=== PATIENT | female | born 1950 | race Caucasian/White ===

== ENCOUNTER 2016-06-14 21:00 | Inpatient (IN) | payer MEDICARE, OTHER ==
[2016-06-14 21:24] LABS: BASOPHIL 0.4 % (0-2); EOSINOPHIL 2.6 % (0-7); HCT 44.1 % (37.0-47.0); HGB 15.6 g/dl (12.5-16.0); LYMPHOCYTE 34.8 % (15-48); MCH 31.5 pg (25.0-31.0); MCHC 35.4 g/dL (32.0-36.0); MCV 89.1 fL (78.0-100.0); MONOCYTE 6.4 % (0-12); MPV 10.1 fL (6.0-9.5); NEUTROPHIL 55.8 % (41-80); PLT 349 K/uL (150-400); RBC 4.95 M/uL (4.20-5.40); RDW 12.7 % (11.5-14.0); WBC 8.9 K/uL (4.0-10.5)
[2016-06-14 21:31] LABS: INR 1.03 (0.9-1.2); PROTHROMBIN TIME 13.1 SECONDS (11.7-14.0); PTT 32.3 SECONDS (23.2-31.4)
[2016-06-14 21:32] LABS: D-DIMER < 0.27 ug/mLFEU (0.00-0.41)
[2016-06-14 21:37] LABS: ALBUMIN 4.4 g/dL (3.4-4.8); BILIRUBIN - TOTAL 0.3 mg/dL (0.1-1.0); CREATININE 0.8 mg/dL (0.5-1.0); GLOBULIN (CALCULATION) 2.8 g/dL (2.2-4.2); MAGNESIUM 1.9 mg/dL (1.40-2.10); POTASSIUM 3.6 mmol/L (3.5-5.1); TOTAL PROTEIN 7.2 g/dL (6.4-8.3)
[2016-06-14 21:39] LABS: MYOGLOBIN 43 ng/mL (26-65); TROPONIN T < 0.010 ng/mL
[2016-06-14 21:43] LABS: CKMB 5.24 ng/mL (0.97-4.94); PRO-BNP 751 pg/mL (0-125)
[2016-06-14 21:50] LABS: FT4 (FREE T4) 0.931 ng/dL (0.93-1.70); TSH (THYROID STIM HORMONE) 3.44 uIU/mL (0.270-4.200)
[2016-06-15 03:46] LABS: BASOPHIL 0.5 % (0-2); HCT 40.9 % (37.0-47.0); LYMPHOCYTE 34.9 % (15-48); MCH 30.9 pg (25.0-31.0); MCHC 34.2 g/dL (32.0-36.0); MCV 90.3 fL (78.0-100.0); MONOCYTE 6.3 % (0-12); MPV 10.4 fL (6.0-9.5); NEUTROPHIL 55.3 % (41-80); PLT 348 K/uL (150-400); RBC 4.53 M/uL (4.20-5.40); RDW 12.9 % (11.5-14.0); WBC 8.5 K/uL (4.0-10.5)
[2016-06-15 03:58] LABS: TROPONIN T 0.054 ng/mL
[2016-06-15 03:59] LABS: CKMB 14.76 ng/mL (0.97-4.94)
[2016-06-15 04:01] LABS: BILIRUBIN - TOTAL 0.2 mg/dL (0.1-1.0); CREATININE 0.8 mg/dL (0.5-1.0); GLOBULIN (CALCULATION) 2.4 g/dL (2.2-4.2); POTASSIUM 3.9 mmol/L (3.5-5.1); TOTAL PROTEIN 6.4 g/dL (6.4-8.3)
[2016-06-15 06:20] LABS: TROPONIN T 0.085 ng/mL
[2016-06-15 06:25] LABS: CKMB 16.47 ng/mL (0.97-4.94)
[2016-06-15 09:44] LABS: TROPONIN T 0.096 ng/mL
[2016-06-15 09:47] LABS: CKMB 19.57 ng/mL (0.97-4.94)
== END 2016-06-15 10:55 | disposition other institution (70) | DRG 310 ==
LOC: FER 21:00 → FTCU 06-15 00:30
PROVIDERS: Emergency Medicine Emergency Medical Services; Nurse Practitioner Family; ADMIT Internal Medicine
DX: I48.91 Unspecified atrial fibrillation (principal); J44.9 Chronic obstructive pulmonary disease, unspecified; I10 Essential (primary) hypertension; K21.9 Gastro-esophageal reflux disease without esophagitis; Z90.710 Acquired absence of both cervix and uterus; Z88.1 Allergy status to other antibiotic agents; Z91.013 Allergy to seafood; R01.1 Cardiac murmur, unspecified; Z82.49 Family history of ischemic heart disease and other diseases of the circulatory system; Z66 Do not resuscitate
CPT/HCPCS: 36415; 71010; 80053; 80061; 82550; 82553; 83735; 83874; 83880; 84439; 84443; 84484; 85025; 85379; 85610; 85730; 93005; 94667; 96372; J2930

== ENCOUNTER 2021-02-20 09:31 | Emergency (ER) | payer MEDICARE, OTHER ==
[~2021-02-20 09:31] MED LIST: 24HOUR ALLERGY10 MG PO; ATORVASTATIN CA10 MG PO; COUMADIN5 MG PO; DIOVAN HCT 1601 EACH PO; LOMOTIL 2.5-0.1 EACH PO; METOPROLOL TART25 M1 PO; MUCINEX 600MG600 MG PO; PERCOCET 5-3251 EACH PO; SYMBICORT 80-10.2 GM INH; TRAZODONE 50MG50 MG PO; VENTOLIN HFA IN18 GM INH
[2021-02-20 11:08] LABS: BASOPHIL 0.3 % (0-2); EOSINOPHIL 0 % (0-7); HCT 48.7 % (37.0-47.0); HGB 16.7 g/dl (12.5-16.0); LYMPHOCYTE 23.4 % (15-48); MCH 30.6 pg (25.0-31.0); MCHC 34.3 g/dL (32.0-36.0); MCV 89.2 fL (78.0-100.0); MONOCYTE 7.7 % (0-12); MPV 10.7 fL (6.0-9.5); NEUTROPHIL 68.1 % (41-80); NRBC 0; PLT 190 K/uL (150-400); RBC 5.46 M/uL (4.20-5.40); RDW 12.2 % (11.5-14.0); WBC 6.6 K/uL (4.0-10.5)
[2021-02-20 11:27] LABS: ALBUMIN 3.4 g/dL (3.4-5.0); BILIRUBIN - TOTAL 0.7 mg/dL (0.2-1.0); BUN/CREAT RATIO (CALC) 17.2 RATIO; CREATININE 0.93 mg/dL (0.51-0.95); GLOBULIN (CALCULATION) 3.7 g/dL; POTASSIUM 3.6 mmol/L (3.5-5.1); TOTAL PROTEIN 7.1 g/dL (6.4-8.2)
[2021-02-20] MEDS ORDERED: PREDNISONE 20MG20 MG PO ×2 (13:40→14:11)
[2021-02-20] MEDS ORDERED: AZITHROMYCIN250 MG PO ×2 (13:40→14:11)
== END 2021-02-20 14:13 | disposition home or self-care (01) ==
LOC: FER 09:31
PROVIDERS: Internal Medicine
DX: U07.1 COVID-19 (principal); J44.9 Chronic obstructive pulmonary disease, unspecified; Z88.1 Allergy status to other antibiotic agents; Z23 Encounter for immunization
CPT/HCPCS: 36415; 71045; 80053; 84145; 85025; J7030; M0243; Q0244